=== PATIENT | male | born 2000 | race Caucasian/White ===

== ENCOUNTER 2025-01-16 07:50 | Day surgery (SDC) | payer OTHER, SELFPAY ==
[2025-01-16 08:39] VITALS: BP 139/86; PULSE 70; RESP 16; TEMP 36.2; O2SAT 98
[2025-01-16] MEDS: LACTATED RINGERS 1,000 ML 42 ML IV (08:44)
--- NOTE | 2025-01-16 08:57 | P.HP_ITS ---
History of Present Illness History of Present Illness Date Patient Seen: 01/16/25 Chief complaint: Colonoscopy Narrative: Rectal bleeding [facility] Medical History Hypertension Surgical History [place] teeth extracted Social History marital status: details: Pt. is in the [employer] household members: spouse lives independently: Yes occupational status: employed Smoking Status: Former smoker alcohol intake: current substance use type: does not use Meds Home Medications and Allergies Home Medications ?Medication ?Instructions ?Recorded ?Confirmed ?Type losartan 50 mg tablet 50 mg PO DAILY 11/18/2402/03 History Allergies Allergy/AdvReac Type Severity Reaction Status Date / Time clarithromycin (From Biaxin) Allergy Verified 01/16/25 08:37 Exam Vital Signs (past 8 hours): - 01/16/25 08:39 Temperature 97.2 F L Pulse Rate 70 Respiratory Rate 16 Blood Pressure 139/86 Pulse Oximetry 98 Oxygen Delivery Method Room Air Oxygen Delivery Method Room Air Narrative Exam Narrative: Oropharynx free of lesions Chest clear to auscultation percussion Cardiac exam reveals no S3 or murmur Assessment & Plan Assessment & Plan narrative: History of rectal bleeding. Risks, benefits, alternatives have been explained for colonoscopy to sort out the issue. Time-Based Coding :: [TOTAL MINUTES] spent with patient and on the chart (including review of chart, obtaining history, exam, reviewing outside data, placing orders, documenting exam and treatment plan, and counseling patient) on [DATE]. [employer] Document charge(s): No
--- NOTE | 2025-01-16 08:59 | PM.OP.COLON ---
Operative Date/Time/Diagnoses Date of procedure: 01/16/25 Time of procedure: 09:52 Pre-op diagnosis: See indication and findings Post-op diagnosis: same Procedure & Clinicians Study performed: Colonoscopy Same procedure(s) as scheduled: Yes Indications: Rectal bleeding Surgeon: Maude Davis Anesthesia Type: Other Procedure Notes Procedure in detail: After informed consent was obtained the patient was placed in left lateral decubitus position. The video colonoscope was introduced the rectum slowly advanced cecum. Preparation was good. On slow withdrawal mucosa was carefully examined. The scope was removed. The patient tolerated procedure well. Blood loss none Complications none Sedation mac Findings 1. Small to medium internal hemorrhoids not clearly inflamed seen on retroflexed view 2. Normal terminal ileum with lymphoid follicles 3. Otherwise negative colonoscopy to cecum A good rectal exam was performed and no anal fissures were seen He continues to have bleeding I would refer to general surgery for evaluation of hemorrhoids.
[2025-01-16 09:55] VITALS: BP 106/54; PULSE 62; RESP 18; TEMP 36.1; O2SAT 96
[2025-01-16 10:00] VITALS: BP 101/56; PULSE 60; RESP 18; O2SAT 96
[2025-01-16 10:05] VITALS: BP 98/60; PULSE 68; RESP 17; O2SAT 99
[2025-01-16 10:15] VITALS: BP 117/83; PULSE 69; RESP 18; O2SAT 99
== END 2025-01-16 10:26 | disposition home or self-care (01) ==
PROVIDERS: Referring Provider Internal Medicine Gastroenterology; Visit Provider Internal Medicine Gastroenterology
PROC: 0DJD8ZZ Inspection of Lower Intestinal Tract, Via Natural or Artificial Opening Endoscopic (ICD-10-PCS; CPT 45378; principal; 2025-01-16 09:00)
DX: K62.5 Hemorrhage of anus and rectum (principal); K64.8 Other hemorrhoids; I10 Essential (primary) hypertension; Z87.891 Personal history of nicotine dependence
CPT/HCPCS: 45378; J2704